=== PATIENT | female | born 1965 ===

== ENCOUNTER 2017-11-21 09:26 | Emergency (ER) | payer OTHER ==
--- NOTE | 2017-11-21 09:48 | ER Report ---
History and Physical Time Seen By MD: 09:47 Hx. of Stated Complaint: felt a pop in her right foot while playing tennis. has taken tylenol and motrin for it. happened about 8:30 this morning. able to bear weight but has a limp HPI/ROS CHIEF COMPLAINT: Right foot pain HISTORY OF PRESENT ILLNESS: 52-year-old female who reportedly felt a popping sensation while playing tennis in her right foot. Patient is able to bear weight with difficulty. She took approximately 400 mg of Advil and a dose of Tylenol prior to arrival and applied ice. Neurovascular exam is intact at time of evaluation. No other injuries are apparent at time of evaluation. REVIEW OF SYSTEMS: Constitutional: No fever, no chills. Musculoskeletal: + TTP volar aspect of right olya Skin: No rashes, no laceration Neurological: NV exam is intact, sensation intact in LE B/L Allergies: Coded Allergies: No Known Drug Allergies (Unverified , 11/21/17) Home Meds No Active Prescriptions or Reported Meds Reviewed Nurses Notes: Yes Hx Substance Use Disorder: No Hx Alcohol Use: No Constitutional Vital Sign - Last 24 Hours 11/21/17 11/21/17 09:30 11:12 Temp 98.1 Pulse 97 64 Resp 14 14 B/P (MAP) 130/76 113/61 (78) Pulse Ox 96 95 O2 Delivery Room Air Room Air Physical Exam General appearance: Alert no distress. Neuro: No focal deficits, sensation intact in distal LE MSK: Mild TTP volar aspect of left LE SKIN: No abrasions or lacerations DIFFERENTIAL DIAGNOSIS: After history and physical exam differential diagnosis was considered for contusion, strain, fracture Medical Decision Making EKG/Imaging Imaging EXAMINATION: Right foot radiographs 3 views HISTORY: Pain on bottom of foot. COMPARISON: None. FINDINGS: AP, lateral and oblique views of the right foot are obtained. Bones: No acute fracture or dislocation. Small calcaneal bone spurs. Joint spaces: Negative. Hardware: None. Alignment: Normal. Soft tissues: Negative. IMPRESSION: No acute right foot fracture. ED Course/Re-evaluation ED Course Patient is a 52-year-old female here with right lower extremity pain acute onset shortly prior to arrival while playing tennis. Patient is able to bear weight on the extremity however notes significant pain with palpation and pressure to the volar aspect of the foot. Ankle is full range of motion, distal digits and intact sensation with no motor deficits. No gross deformities are noted on exam. X-ray was unremarkable finding no acute fractures or dislocations. Patient received Toradol with moderate relief of symptoms. Patient was advised to continue resting the extremity, exercises as tolerated, ice, NSAIDs with PCP or sports medicine follow-up as needed. Patient voiced understanding. BRADLEY wrap applied prior to discharge Decision to Disposition Date: Nov 21, 2017 Decision to Disposition Time: 11:05 Depart Departure Latest Vital Signs Vital Signs Date Time Temp Pulse Resp B/P (MAP) Pulse Ox O2 Delivery O2 Flow Rate FiO2 11/21/17 11:12 64 14 113/61 (78) 95 Room Air 11/21/17 09:30 98.1 Impression: Primary Impression: Contusion, foot Condition: Improved Disposition: HOME OR SELF-CARE New Scripts No Active Prescriptions or Reported Meds Patient Instructions: Contusion in Adults (ED) Additional Instructions: Please continue to apply ice, rest the extremity, exercise as tolerated with weightbearing. He may take NSAIDs such as ibuprofen or naproxen as needed for pain. If pain persists please follow-up with your family doctor or sports medicine for further evaluation. No fracture was identified on x-ray imaging of her foot. He received 30 mg of Toradol for pain relief. MYRNA GARDINER DO Nov 21, 2017 09:48
[2017-11-21] MEDS ORDERED: KETOROLAC 30 MG/ML VIAL IM ONE (09:55)
--- NOTE | 2017-11-21 10:25 | RADIOLOGY IMAGING REPORT ---
FACILITY: [facility] [place] PATIENT NAME: Petra Bhatti : 1965 MR: [id number] V: [id number] EXAM DATE: ORDERING PHYSICIAN: MYRNA GARDINER TECHNOLOGIST: Location: [facility] Patient: Petra Bhatti : 1965 Visit/Account:[id number] Date of Sevice: 11/21/2017 EXAMINATION: Right foot radiographs 3 views HISTORY: Pain on bottom of foot. COMPARISON: None. FINDINGS: AP, lateral and oblique views of the right foot are obtained. Bones: No acute fracture or dislocation. Small calcaneal bone spurs. Joint spaces: Negative. Hardware: None. Alignment: Normal. Soft tissues: Negative. IMPRESSION: No acute right foot fracture. Report Dictated By: Danette Hernández MD at 11/21/2017 10:19 AM Report E-Signed By: Danette Hernández MD at 11/21/2017 10:21 AM WSN:[id number]
[2017-11-21 11:12] VITALS: BP 113/61
== END 2017-11-21 11:14 | disposition home or self-care (01) ==
LOC: ER 09:26
DX: S90.31XA Contusion of right foot, initial encounter (principal); Y93.73 Activity, racquet and hand sports
CPT/HCPCS: 73630; 99283; J1885